=== PATIENT | male | born 1945 | race Caucasian/White ===

== ENCOUNTER → 2016-06-08 | Outpatient (CLI) | payer MEDICARE, OTHER, MEDICAID ==
[~2016-06-08] MED LIST: ALLOPURINOL300 MG PO; COREG6.25 MG PO; COUMADIN2 MG PO; COUMADIN4 MG PO; FUROSEMIDE40 MG PO; HUMALOG100 UNIT/1 SUBCUT; KLOR-CON M1010 MEQ PO; KLOR-CON M2020 MEQ PO; LASIX40 MG PO; LASIX80 MG PO; LEVEMIR FL100 UNIT/1 SUBCUT; LEVEMIR100 UNIT/1 SUBCUT; LIPITOR40 MG PO; NORCO 325-5 MG1 TAB PO; NUCYNTA ER50 MG PO; PRINIVIL2.5 MG PO; THERA M PLUS T1 EACH PO; TYLENOL325 MG PO; ZAROXOLYN2.5 MG PO; ZOLOFT100 MG PO
== END | disposition short-term general hospital (02) ==
LOC: CLCARD 09:49
DX: I25.810 Atherosclerosis of coronary artery bypass graft(s) without angina pectoris (principal); I51.7 Cardiomegaly; N18.9 Chronic kidney disease, unspecified; I25.5 Ischemic cardiomyopathy; I50.22 Chronic systolic (congestive) heart failure; I50.1 Left ventricular failure, unspecified; E78.5 Hyperlipidemia, unspecified; Z86.73 Personal history of transient ischemic attack (TIA), and cerebral infarction without residual deficits; I48.2 Chronic atrial fibrillation; Z79.01 Long term (current) use of anticoagulants; Z95.810 Presence of automatic (implantable) cardiac defibrillator; Z91.048 Other nonmedicinal substance allergy status

== ENCOUNTER → 2016-06-25 | Outpatient (CLI) | payer MEDICARE, OTHER, MEDICAID | END | disposition short-term general hospital (02) | LOC: CLCARD 13:22 | DX: Z45.02 Encounter for adjustment and management of automatic implantable cardiac defibrillator (principal); I25.5 Ischemic cardiomyopathy ==

== ENCOUNTER → 2016-07-13 | Outpatient (CLI) | payer MEDICARE, OTHER, MEDICAID | END | disposition short-term general hospital (02) | LOC: CLCARD 02:14 | DX: I25.10 Atherosclerotic heart disease of native coronary artery without angina pectoris (principal); I50.22 Chronic systolic (congestive) heart failure; I50.1 Left ventricular failure, unspecified; I51.7 Cardiomegaly; N18.9 Chronic kidney disease, unspecified; I25.5 Ischemic cardiomyopathy; E78.5 Hyperlipidemia, unspecified; I48.2 Chronic atrial fibrillation; N18.3 Chronic kidney disease, stage 3 (moderate); Z95.810 Presence of automatic (implantable) cardiac defibrillator; Z86.73 Personal history of transient ischemic attack (TIA), and cerebral infarction without residual deficits; Z79.01 Long term (current) use of anticoagulants ==